=== PATIENT | male | born 2005 | race African-American/Black ===

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

== ENCOUNTER 2023-10-10 00:33 | Emergency (ER) | payer MEDICAID, OTHER ==
[~2023-10-10] VITALS: Ht 182.9 cm; Wt 80.0 kg
[~2023-10-10 00:33] MED LIST: IBUP-2029 MT
[2023-10-10 00:48] VITALS: O2SAT 98
[2023-10-10] MEDS: IBUPROFEN 400MG TABLET PO ONE (01:08)
[2023-10-10] MEDS ORDERED: IBUP-2028 MT (03:28)
[2023-10-10 04:08] VITALS: BP 111/68; PULSE 62; RESP 18; TEMP 97.8
== END 2023-10-10 04:00 | disposition home or self-care (01) ==
LOC: ER 00:33
DX: M54.2 Cervicalgia (principal); M54.9 Dorsalgia, unspecified; V49.40XA Driver injured in collision with unspecified motor vehicles in traffic accident, initial encounter; Y93.89 Activity, other specified; Y92.89 Other specified places as the place of occurrence of the external cause; Y99.8 Other external cause status
CPT/HCPCS: 72040; 72070; 99284